=== PATIENT | female | born 1985 | race Caucasian/White ===

== ENCOUNTER → 2023-10-14 07:57 | Outpatient (REF) | payer OTHER, SELFPAY | LOC: RAD 07:57 | PROVIDERS: ATTENDING PHYSICIAN Obstetrics & Gynecology; FAMILY PHYSICIAN Internal Medicine | DX: Z30.431 Encounter for routine checking of intrauterine contraceptive device (principal) | CPT/HCPCS: 76830; 76856 ==

== ENCOUNTER → 2024-10-19 08:57 | Outpatient (REF) | payer OTHER, SELFPAY | LOC: RAD 08:57 | PROVIDERS: ATTENDING PHYSICIAN Obstetrics & Gynecology; FAMILY PHYSICIAN Internal Medicine | DX: R14.0 Abdominal distension (gaseous) (principal) | CPT/HCPCS: 76830; 76856 ==

== ENCOUNTER → 2025-02-01 09:40 | Outpatient (REF) | payer OTHER, SELFPAY | LOC: HWRAD 09:40 | PROVIDERS: ATTENDING PHYSICIAN Internal Medicine | DX: J32.9 Chronic sinusitis, unspecified (principal) | CPT/HCPCS: 70486 ==

== ENCOUNTER → 2025-02-07 11:45 | Outpatient (REF) | payer OTHER, SELFPAY | LOC: CLAB 11:45 | PROVIDERS: ATTENDING PHYSICIAN Otolaryngology | DX: J32.4 Chronic pansinusitis (principal) | CPT/HCPCS: 87070; 87205 ==